=== PATIENT | male | born 1995 | race Caucasian/White ===

== ENCOUNTER 2023-07-24 23:14 | Emergency (ER) | payer OTHER, SELFPAY ==
[2023-07-24 23:24] VITALS: BP 101/66; BP 131/59; PULSE 109; PULSE 98; RESP 23; TEMP 36.3; O2SAT 100; O2SAT 98; BMI 24.4
[2023-07-24 23:29] LABS: Glucose, Whole Blood 122 mg/dL (60-115)
--- NOTE | 2023-07-24 23:34 | ECG_ITS ---
Test Reason : SYNCOPE Blood Pressure : / mmHG Vent. Rate : 086 BPM Atrial Rate : 086 BPM P-R Int : 154 ms QRS Dur : 102 ms QT Int : 364 ms P-R-T Axes : 071 019 034 degrees QTc Int : 435 ms Normal sinus rhythm Normal ECG No previous ECGs available Referred By: Generic ED Physician Electronically Signed By:DEBORAH HICKS MD
[2023-07-24 23:38] LABS: Glucose, Whole Blood 134 mg/dL (60-115)
[2023-07-24 23:51] LABS: MANUAL DIFF FLAG NO
[2023-07-25 00:06] LABS: Alanine Aminotransferase 24 U/L (0-40); Albumin Level 4.3 g/dL (3.5-5.0); Alkaline Phosphatase 60 U/L (39-117); Anion Gap 15 (12-20); Aspartate Amino Transferase 22 U/L (5-37); Bilirubin Total 1.2 mg/dL (0.0-1.0); Blood Urea Nitrogen 10 mg/dL (9-16); Carbon Dioxide 23 mmol/L (22-29); Chloride 108 mmol/L (96-108); Creatinine Clr Calc Pharmacy 152.2; Estimated Glomerular Filt Rate > 60; Glucose Random 161 mg/dL (60-115); Potassium 3.5 mmol/L (3.3-5.1); Sodium 142 mmol/L (135-145); Total Protein 7.1 g/dL (6.5-8.0)
[2023-07-25 00:08] LABS: Basophils Percent Auto 0.2 % (0-2); Eosinophils Percent Auto 0.1 % (0-4); Hematocrit 42.1 % (42.0-52.0); Imm Gran Pct Auto 0.5 % (0.0-0.4); Lymphocytes Absolute Auto 1.1 X10*3/uL (1.2-4.9); Mean Corpuscular HGB Conc 35.6 g/dl (31.0-36.0); Mean Corpuscular Hemoglobin 30.9 pg (27.0-33.0); Mean Corpuscular Volume 86.8 fL (80.0-98.0); Mean Platelet Volume 8.8 fL (9.4-12.4); Monocytes Absolute Auto 0.9 X10*3/uL (0.1-1.2); Neutrophils Absolute Auto 16.2 x10*3/uL (2.0-8.3); Neutrophils Percent Auto 88.2 % (45-73); Platelet Count 264 X10*3/uL (160-400); Red Blood Count 4.85 X10*6/uL (4.60-5.80); Red Cell Distribution Width 13.3 % (11.0-16.0); White Blood Count 18.4 X10*3/uL (4.8-10.8)
--- NOTE | 2023-07-25 00:14 | PC.NURSE ---
Upon arrival to ED [facility] Insulin pump was removed from patient due to hypoglycemia. Upon arrival of family, family hooked up insulin pump to patient and administered 2 units of insulin and resumed basal rate. Nurse provided education that while here in the ED and for the current time we need the pump to be off, we will be monitoring his blood glucose levels. Repeat Blood glucose at this time is 173.
[2023-07-25 00:18] LABS: Glucose, Whole Blood 173 mg/dL (60-115)
[2023-07-25 00:20] LABS: Ethanol 201 mg/dL
--- NOTE | 2023-07-25 00:39 | ED.GENADULT ---
[facility] - General Adult General Chief complaint: Syncope Stated complaint: hypoglycemia Time Seen by Provider: 07/25/23 00:06 Source: patient, family () and EMS Mode of arrival: EMS History of Present Illness ED Provider: Dr Valerio [facility] narrative: 28-year-old male with known type 1 diabetes, had multiple drinks at his wedding and was found unresponsive and significantly hypoglycemic family administered honey, repeated sternal rubs and patient eventually became more arousable, upon arrival EMS provided 15 g of oral glucose with a point of care of 138. Related Data Allergies Allergy/AdvReac Type Severity Reaction Status Date / Time No Known Allergies Allergy Verified 07/24/23 23:29 Review of Systems Review of Systems: Pertinent positives and negatives as stated in [facility] Past Medical History Source: nursing notes reviewed Social History Social History Alcohol intake: current Alcohol type: beer Smoked in Last 30 Days: No Use of substances other than those prescribed or required for medical reasons: No Do you have a plan to hurt others: No Plan Physical Exam ED Vital Signs: Vital Signs - 24 hr 07/24/23 23:24 07/24/23 23:30 Temperature 97.3 F Pulse Rate 98 Respiratory Rate 23 H Blood Pressure 101/66 Pulse Oximetry 98 Oxygen Delivery Method Room Air Room Air BMI result Body Mass Index 24.4 VITAL SIGNS: Reviewed. GENERAL: Well developed, well nourished, in no acute distress. HEAD: Normocephalic/atraumatic EYES: PERRLA, EOMI EARS: Ext canals without abnormality NOSE: Nares patent bilateral OROPHARYNX: no oral lesions noted, posterior pharynx clear NECK: Supple, no adenopathy LUNGS: Normal breath sounds. No adventitious sounds or accessory muscle use. SpO2<98> CARDIOVASCULAR: Regular rate and rhythm without noted murmurs ABDOMEN: Soft, non-tender, non-distended with bowel sounds. MUSCULOSKELETAL: No tenderness, deformities, or effusions noted on gross inspection. EXTREMITIES: No cyanosis, clubbing or edema. SKIN: Inspection of the skin reveals no rashes NEUROLOGIC: Alert and oriented x 4. Strength and sensation to light touch were grossly intact x 4. Medical Decision Making Medical Decision Making [facility] Narrative: 28-year-old male with history and clinical presentation most consistent with hypoglycemic episode secondary to alcohol intoxication while still receiving basal level insulin. Patient is now alert and oriented, family members came in in administered an additional 2 units of insulin and I instructed them that there are to be no further medications administered that have not been given by the emergency room staff. I reviewed all investigations and hematologic indices demonstrate a noninfectious leukocytosis this is considered to be reactive from patient's unresponsive hypoglycemic episode there is no anemia or thrombocytopenia. Chemistry indices do not demonstrate an CRISTIAN or electrolyte derangements, patient's bilirubin is chronically elevated. Glucose levels continue to improve, patient will receive 1 L of IV fluids and also receive food. Patient will be discharged as long as glucose level stays stable. Signed out to Dr Argueta - discharge after IVF and stable glucose values Differential Diagnosis Differential Diagnoses: The differential diagnosis associated with the presentation includes Please see the discussion above Admission/Observation Consideration of admission/observation: Escalation of care including admission/observation considered Please see the discussion above Lab Data MDM Lab Attestation statement: I reviewed the patient's lab results. Please see the discussion above 07/24/23 23:47 07/24/23 23:47 Labs: Lab Results 07/24/23 07/24/23 07/24/23 Range/Units 23:21 23:34 23:47 WBC 18.4 H (4.8-10.8) X10*3/uL RBC 4.85 (4.60-5.80) X10*6/uL Hgb 15.0 (14.0-18.0) g/dl Hct 42.1 (42.0-52.0) % MCV 86.8 (80.0-98.0) fL MCH 30.9 (27.0-33.0) pg MCHC 35.6 (31.0-36.0) g/dl RDW 13.3 (11.0-16.0) % Plt Count 264 (160-400) X10*3/uL MPV 8.8 L (9.4-12.4) fL Immature Gran % (Auto) 0.5 H (0.0-0.4) % Neut % (Auto) 88.2 H (45-73) % Lymph % (Auto) 6.0 L (20-40) % [place] % (Auto) 5.0 (2-11) % Eos % (Auto) 0.1 (0-4) % Baso % (Auto) 0.2 (0-2) % Lymph # (Auto) 1.1 L (1.2-4.9) X10*3/uL [place] # (Auto) 0.9 (0.1-1.2) X10*3/uL Eos # (Auto) 0.0 (0.0-0.4) X10*3/uL Baso # (Auto) 0.0 (0.0-0.2) X10*3/uL Abs Immat Gran (auto) 0.10 H (0.00-0.03) X10*3/uL Absolute Neuts (auto) 16.2 H (2.0-8.3) x10*3/uL Absolute Nucleated RBC 0.000 (0.0-0.012) X10*3/uL Nucleated RBC % (auto) 0.0 (0.0-0.2) /100WBC Sodium 142 (135-145) mmol/L Potassium 3.5 (3.3-5.1) mmol/L Chloride 108 (96-108) mmol/L Carbon Dioxide 23 (22-29) mmol/L Anion Gap 15 (12-20) BUN 10 (9-16) mg/dL Creatinine 0.84 (0.5-1.4) mg/dL Estim Creat Clear Calc 152.2 Estimated GFR > 60 POC Glucose 122 H 134 H (60-115) mg/dL Random Glucose 161 H (60-115) mg/dL Calcium 9.0 (8.4-10.2) mg/dL Total Bilirubin 1.2 H (0.0-1.0) mg/dL AST 22 (5-37) U/L ALT 24 (0-40) U/L Alkaline Phosphatase 60 (39-117) U/L Total Protein 7.1 (6.5-8.0) g/dL Albumin 4.3 (3.5-5.0) g/dL Ethyl Alcohol 201 mg/dL 07/25/23 Range/Units 00:12 WBC (4.8-10.8) X10*3/uL RBC (4.60-5.80) X10*6/uL Hgb (14.0-18.0) g/dl Hct (42.0-52.0) % MCV (80.0-98.0) fL MCH (27.0-33.0) pg MCHC (31.0-36.0) g/dl RDW (11.0-16.0) % Plt Count (160-400) X10*3/uL MPV (9.4-12.4) fL Immature Gran % (Auto) (0.0-0.4) % Neut % (Auto) (45-73) % Lymph % (Auto) (20-40) % [place] % (Auto) (2-11) % Eos % (Auto) (0-4) % Baso % (Auto) (0-2) % Lymph # (Auto) (1.2-4.9) X10*3/uL [place] # (Auto) (0.1-1.2) X10*3/uL Eos # (Auto) (0.0-0.4) X10*3/uL Baso # (Auto) (0.0-0.2) X10*3/uL Abs Immat Gran (auto) (0.00-0.03) X10*3/uL Absolute Neuts (auto) (2.0-8.3) x10*3/uL Absolute Nucleated RBC (0.0-0.012) X10*3/uL Nucleated RBC % (auto) (0.0-0.2) /100WBC Sodium (135-145) mmol/L Potassium (3.3-5.1) mmol/L Chloride (96-108) mmol/L Carbon Dioxide (22-29) mmol/L Anion Gap (12-20) BUN (9-16) mg/dL Creatinine (0.5-1.4) mg/dL Estim Creat Clear Calc Estimated GFR POC Glucose 173 H (60-115) mg/dL Random Glucose (60-115) mg/dL Calcium (8.4-10.2) mg/dL Total Bilirubin (0.0-1.0) mg/dL AST (5-37) U/L ALT (0-40) U/L Alkaline Phosphatase (39-117) U/L Total Protein (6.5-8.0) g/dL Albumin (3.5-5.0) g/dL Ethyl Alcohol mg/dL Chronic Conditions Patient?s care impacted by: Diabetes Critical Care Time Critical Care Time Critical Care Time: Yes Total Critical Care Time: 60 Attestation: I personally attest to this time spent taking care of the patient. Discharge Plan Discharge Clinical Impression: Alcohol intoxication, Hypoglycemia Patient Disposition: Still a Patient Instructions: Alcohol Intoxication (ED), Hypoglycemia in a Person with Diabetes (ED) Additional Instructions: Exercise caution when consuming alcohol while receiving insulin. Do not hesitate to return to the emergency room for any worsening of symptoms. Print Language: French
[2023-07-25] MEDS: 0.9 % Sodium Chloride 1,000 ML 999 ML IV (01:34)
[2023-07-25 01:54] VITALS: BP 102/66; PULSE 97; RESP 18; TEMP 36.9; O2SAT 98
[2023-07-25 02:36] VITALS: BP 112/74; PULSE 90; RESP 24; TEMP 36.9; O2SAT 98
== END 2023-07-25 02:39 | disposition home or self-care (01) ==
PROVIDERS: Emergency Provider Student in an Organized Health Care Education/Training Program
DX: E10.649 Type 1 diabetes mellitus with hypoglycemia without coma (principal); F10.129 Alcohol abuse with intoxication, unspecified; Y90.9 Presence of alcohol in blood, level not specified
CPT/HCPCS: 36415; 80053; 80307; 82947; 85025; 93005; 96360; 99285

== ENCOUNTER → 2023-07-24 23:34 | Outpatient (BNV) | payer OTHER, SELFPAY | PROVIDERS: Emergency Provider Student in an Organized Health Care Education/Training Program; Visit Provider Internal Medicine Cardiovascular Disease | DX: R55 Syncope and collapse (principal) | CPT/HCPCS: 93010 ==